=== PATIENT | male | born 1965 | race African-American/Black ===

== ENCOUNTER 2016-08-03 18:39 | Emergency (ER) | payer OTHER ==
[~2016-08-03] VITALS: Ht 167.6 cm; Wt 103.0 kg
[2016-08-03 19:01] VITALS: BP 145/91
--- NOTE | 2016-08-03 19:46 | Emergency Room Report ---
History of Present Illness General Chief Complaint: Lower Back Pain or Injury Source: Patient Present Illness HPI 51-year-old male presents emergency department complaining of 10/10 in severity low back pain that radiates across his low back and he describes as constant, tight and not it up in nature. 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 Patient states that he has intermittent swelling in the left knee and states that he has been taking ibuprofen with no relief and believes he may need an alternative anti-inflammatory medication. Pt. states back pain is exacerbated with laying flat or bending forward. Patient denies new injury or fall the patient states he has been working more strenuously at his job and will require a work note. Patient denies radiation of pain down the legs.denies dysuria, or fevers/chills, denies abdominal pain. Patient denies erythema, increased temperature palpation of the knee or the back. Patient denies recent spinal seizure. Patient denies history of neoplastic disease. She states that he has had 2 MRIs performed previously the showed arthritic changes. Patient states he was unable to he seen by his doctor today. Denies numbness tingling or loss of sensation or gross motor movements of the extremities, incontinence of bowel or bladder. Denies CP, Palpitations, LOC, AMS, dizziness, Changes in Vision, Sensation, paresthesias, or a sudden severe headache. Allergies: Coded Allergies: No Known Allergies (Unverified , 08/03/16) Patient History Past Medical History: see triage record Past Surgical History: none Pertinent Family History: none Immunizations: UTD Reviewed Nursing Documentation: PMH: Agreed, PSxH: Agreed Nursing Documentation-PM Past Medical History: No Stated History Review of Systems All Other Systems: negative except mentioned in HPI Physical Exam Vital Signs Date Time Temp Pulse Resp B/P Pulse Ox O2 Delivery O2 Flow Rate FiO2 08/03/16 19:01 98.4 60 14 145/91 95 Room Air Sp02 EP Interpretation: reviewed, normal General Appearance: no apparent distress, alert, GCS 15, non-toxic Head: normocephalic, atraumatic Eyes: bilateral eye PERRL, bilateral eye normal inspection ENT: hearing grossly normal, normal pharynx, no angioedema, normal voice Neck: full range of motion, supple/symm/no masses Respiratory: chest non-tender, lungs clear, normal breath sounds, speaking full sentences Cardiovascular #1: regular rate, rhythm, no edema Musculoskeletal: back normal, gait/station normal, normal range of motion - with pain, no calf tenderness, tender - bilateral paraspinal TTP, no midline TTP of the lumbar spine, no obvious deformities, no evidence of infection. mild swelling to the anterior/lateral left knee, no increased laxity, no erythema or increased temperature to palpation. Neurologic: alert, oriented x3, responsive, motor strength/tone normal, sensory intact, speech normal Psychiatric: judgement/insight normal, memory normal, mood/affect normal, no suicidal/homicidal ideation Skin: normal color, no rash, warm/dry, well hydrated Lymphatic: no adenopathy Medical Decision Making PA Attestation Dr. Fisher is my supervising Physician whom patient management has been discussed with. Diagnostic Impression: Primary Impression: Exacerbation of chronic back pain Additional Impressions: Arthritis of knee Arthritis of back ER Course 51-year-old male presents emergency department complaining of 10/10 in severity low back pain that radiates across his low back and he describes as constant, tight and not it up in nature. 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 Patient states that he has intermittent swelling in the left knee and states that he has been taking ibuprofen with no relief and believes he may need an alternative anti-inflammatory medication. Patient denies new injury or fall the patient states he has been working more strenuously at his job and will require a work note. Ddx considered but are not limited to Fracture, dislocation, contusion, epidural abscess, Sprain/Strain/Spasm, kidney stone, pyelo. Vital signs: are WNL, pt. is afebrile H&PE are most consistent with muscle spasm of the back and intermittent non - acute swelling of the left knee secondary to arthritic changes. no evidence of cauda equina syndrome or infection. ORDERS: none required at this time. ED INTERVENTIONS: -pt. declines dennis wrap. -350mg soma DISCHARGE: At this time pt. is stable for d/c to home. Will provide printed patient care instructions, and any necessary prescriptions. Care plan and follow up instructions have been discussed with the patient prior to discharge. Last Vital Signs Date Time Temp Pulse Resp B/P Pulse Ox O2 Delivery O2 Flow Rate FiO2 2/20/17 19:01 98.4 60 14 145/91 95 Room Air Disposition: HOME, SELF-CARE Condition: Stable Scripts Naproxen* (NAPROXEN*) 500 Mg Tablet 500 MG ORAL TWICE A WEEK, #60 TAB 0 Refills Prov: Sunni Solis 08/03/16 Cyclobenzaprine Hcl* (FLEXERIL*) 10 Mg Tablet 10 MG ORAL THREE TIMES A DAY for 7 Days, #21 TAB Prov: Sunni Solis 08/03/16 Departure Forms: Return to Work Return to Work Date: Aug 05, 2016 Work Restrictions: No Heavy Lifting, No Prolonged Standing Other Restrictions: light duty x 1 week. Return to Full Activity: Aug 10, 2016 Patient Instructions: Arthritis, [id number], Back Pain, Adult, Muscle Cramps and Spasms, [id number] Additional Instructions: Take medications as directed. Follow up with PCP in 3-5 days Return sooner to ED if new symptoms occur, or current symptoms become worse. Do not drink alcohol, drive, or operate heavy machinery while taking Muscle relaxer as this may cause drowsiness. - Please note that this Emergency Department Report was dictated using [employer] rep[employer] pullman technology software, occasionally this can lead to erroneous entry secondary to interpretation by the dictation equipment. Sunni Solis Aug 03, 2016 19:46
[2016-08-03] MEDS ORDERED: CYCLOBENZAPRINE10 MG ORAL (19:47)
[2016-08-03] MEDS ORDERED: NAPROXEN500 M2 ORAL (19:47)
[2016-08-03 19:57] VITALS: BP 138/89
== END 2016-08-03 19:59 | disposition home or self-care (01) ==
LOC: EMR 19:30
DX: G89.29 Other chronic pain (principal); M17.10 Unilateral primary osteoarthritis, unspecified knee; M47.9 Spondylosis, unspecified
CPT/HCPCS: 99284

== ENCOUNTER 2017-07-29 09:42 | Emergency (ER) | payer OTHER ==
[~2017-07-29] VITALS: Ht 167.6 cm; Wt 105.2 kg
[~2017-07-29 09:42] MED LIST: CYCLOBENZAPRINE10 MG ORAL; NAPROXEN500 M2 ORAL
[2017-07-29] MEDS ORDERED: NKM (10:04)
[2017-07-29 10:13] VITALS: BP 117/77
[2017-07-29] MEDS ORDERED: VENTOLIN HFA18 GM INH (10:26)
[2017-07-29] MEDS ORDERED: Albuterol ud Inhalation HHN ONE (10:30)
--- NOTE | 2017-07-29 10:31 | Emergency Room Report ---
History of Present Illness General Chief Complaint: Upper Respiratory Illness Source: Patient Present Illness HPI [id number] with 5 days dry cough No history of asthma, smoker Denies fever/chills, myalgias, headache, neck pain/stiffness Allergies: Coded Allergies: No Known Allergies (Unverified , 08/03/16) Patient History Past Medical History: none Past Surgical History: none Pertinent Family History: none Social History: Denies: smoking, alcohol use, drug use Immunizations: UTD Reviewed Nursing Documentation: PMH: Agreed, PSxH: Agreed Nursing Documentation-PMH Past Medical History: No Stated History Review of Systems All Other Systems: negative except mentioned in HPI Physical Exam Vital Signs Date Time Temp Pulse Resp B/P (MAP) Pulse Ox O2 Delivery O2 Flow Rate FiO2 07/29/17 10:01 98.3 85 16 117/77 96 Room Air 98.2 Sp02 EP Interpretation: reviewed, normal General Appearance: normal inspection, well appearing, no apparent distress, alert, GCS 15, non-toxic Head: normocephalic, atraumatic Eyes: bilateral eye PERRL, bilateral eye EOMI ENT: normal ENT inspection, hearing grossly normal, normal pharynx, no angioedema, normal voice, TMs + canals normal, uvula midline, moist mucus membranes Neck: normal inspection, full range of motion, supple, thyroid normal, no meningismus, no bony tend Respiratory: normal inspection, no rhonchi, no respiratory distress, no retraction, no accessory muscle use, speaking full sentences, wheezing Cardiovascular #1: regular rate, rhythm, no edema, no JVD, normal capillary refill Gastrointestinal: normal inspection, normal bowel sounds, non tender, soft, no mass, no peritonitis, non-distended, no guarding, no hernia, no pulsatile mass Genitourinary: no CVA tenderness Musculoskeletal: normal inspection, back normal, normal range of motion, no calf tenderness, pelvis stable, Bunny's Sign negative Neurologic: normal inspection, alert, oriented x3, responsive, grapple crew leader III-XII nml as tested, motor strength/tone normal, cerebellar normal, normal gait, speech normal Psychiatric: normal inspection, judgement/insight normal, mood/affect normal, no suicidal/homicidal ideation, no delusions Skin: normal inspection, normal color, no rash Lymphatic: normal inspection, no adenopathy Medical Decision Making Diagnostic Impression: Primary Impression: Upper respiratory infection Qualified Codes: J06.9 - Acute upper respiratory infection, unspecified ER Course VSS, afebrile Mild wheezing on exam Likely URI, acute bronchitis No symptoms of myalgias, headache, vomiting to suggest flu Albuterol neb given in ED Rx ascencion DC Last Vital Signs Date Time Temp Pulse Resp B/P (MAP) Pulse Ox O2 Delivery O2 Flow Rate FiO2 07/29/17 10:13 98.2 85 16 117/77 96 Room Air 98.2 Status: improved Disposition: HOME, SELF-CARE Condition: Improved Scripts Albuterol Sulfate (VENTOLIN HFA) 18 Gm Hfa.aer.ad 1 PUFF INH EVERY 6 HOURS, #18 GM 0 Refills Prov: DOREEN COLLINS M.D. 07/29/17 Patient Instructions: Upper Respiratory Infection, Adult DOREEN COLLINS M.D. Jul 29, 2017 10:31
[2017-07-29 10:38] VITALS: BP 117/77
== END 2017-07-29 10:55 | disposition home or self-care (01) ==
LOC: EMR 10:49
DX: J06.9 Acute upper respiratory infection, unspecified (principal)
CPT/HCPCS: 94640; 94664; 99283